=== PATIENT | male | born 1970 | race Asian ===

== ENCOUNTER 2017-07-26 09:31 | Outpatient (CLI) | payer OTHER ==
[2017-07-26 09:50] LABS: BASOPHILS % 0.4 (0.0-1.5); EOSINOPHILS % 2.6 % (0.0-6.8); MEAN CORPUSCULAR HEMOGLOBIN 28.3 pg (28.0-34.0); MEAN CORPUSCULAR VOLUME 84.5 fl (80.0-100.0); MONOCYTES % 6.5 % (0.0-11.0); NEUTROPHILS # 3.2 # k/uL (1.4-7.7)
[2017-07-26 10:20] LABS: eGFR (African) > 60; eGFR (Non-African) > 60
== END 2017-07-26 09:32 ==
LOC: LAB 09:31
PROVIDERS: ATTEND Physician Assistant
DX: R20.0 Anesthesia of skin (principal); R53.83 Other fatigue
CPT/HCPCS: 36415; 80053; 80061; 84443; 85025

== ENCOUNTER 2019-02-03 17:08 | Outpatient (CLI) | payer OTHER ==
[2019-02-03 17:31] LABS: eGFR (Non-African) > 60
[2019-02-03 17:32] LABS: HDL 37 mg/dL (>40)
== END 2019-02-03 17:13 ==
LOC: LABRHC 17:08
PROVIDERS: ATTEND Family Medicine
DX: R10.11 Right upper quadrant pain (principal)
CPT/HCPCS: 80053; 80061; 83690

== ENCOUNTER → 2019-02-28 | Outpatient (CLI) | payer OTHER ==
--- NOTE | 2019-02-28 10:16 | Diagnostic Imaging Report ---
PATIENT MR#: [id number] PATIENT PATIENT NAME: JOSH DENNISON DATE OF : 1970 REFERRING PHYSICIAN: Aly Espinal EXAM DATE: 02/28/2019 ACCESSION NUMBER: [id number] EXAM DESCRIPTION: US ABDOMEN LIMITED HISTORY: RIGHT UPPER QUADRANT ABDOMINAL PAIN. TECHNIQUE: Right upper quadrant ultrasound. COMPARISON: No pertinent prior studies are available at this time. ULTRASOUND RUQ: Liver: 15.4 cm length. No intrahepatic ductal dilation. Gallbladder: Normally distended and without stones or wall thickening. Negative sonographic Holland's sign per technologist note. Common bile duct: Nondistended at 3 mm. Pancreas: Poorly visualized due to overlying bowel gas. Right kidney: 10.2 x 4.8 x 6.1 cm. No stones or hydronephrosis. Aorta: Normal caliber. Peritoneum: No free fluid. IMPRESSION: No acute right upper quadrant findings. Read by: Dr. Chepe Romeo Transcribed by: Chepe Romeo Transcribed Date: 02/28/2019 10:11:39 AM Electronically signed by: Dr. Chepe Romeo Date signed: 02/28/2019 10:15:23 AM
== END ==
LOC: RAD 08:14
PROVIDERS: ATTEND Family Medicine
DX: R10.11 Right upper quadrant pain (principal)